=== PATIENT | female | born 1990 | race Caucasian/White ===

== ENCOUNTER → 2021-06-20 10:00 | Outpatient (CLI) | payer OTHER, SELFPAY ==
[2021-06-20 11:28] LABS: hCG Titer Quant., Serum 9250 mIU/mL (1-3)
== END ==
PROVIDERS: Obstetrics & Gynecology; Referring Provider Obstetrics & Gynecology; Visit Provider Obstetrics & Gynecology
DX: Z34.90 Encounter for supervision of normal pregnancy, unspecified, unspecified trimester (principal)
CPT/HCPCS: 36415; 84702; 86850; 86900; 86901

== ENCOUNTER → 2022-07-12 | Outpatient (CLI) | payer OTHER, SELFPAY ==
[2022-07-13 21:07] LABS: Chlamydia By Nucleic Acid AMP Negative (Negative)
[2022-07-14 13:08] LABS: Gonococcus By Nucleic Acid AMP Negative (Negative)
[2022-07-15 12:29] LABS: HPV APTIMA, High Risk Negative (Negative)
== END | disposition home or self-care (01) ==
LOC: LABSPEC 12:52
PROVIDERS: Referring Provider Obstetrics & Gynecology; Visit Provider Obstetrics & Gynecology
DX: Z34.90 Encounter for supervision of normal pregnancy, unspecified, unspecified trimester (principal)
CPT/HCPCS: 87491; 87591; 87624; 88175; G0145

== ENCOUNTER → 2022-08-11 | Outpatient (CLI) | payer OTHER, SELFPAY ==
[2022-08-11 15:55] LABS: Absolute Lymphocyte Count 1.76 X10^3/uL (0.83-4.51); Absolute Neutrophil Count 6.3 X10^3/uL (2.0-7.7); Basophil# 0.01 X10^3/uL; Basophil% 0.1 % (0-1); Eosinophil# 0.07 X10^3/uL; Eosinophils% 0.8 % (0-5); Hematocrit 37.6 % (37-47); Hemoglobin 12.4 g/dL (12.0-15.0); Lymphocyte # 1.76 X10^3/ul (0.83-4.51); Lymphocyte % 20.4 % (19-41); Mean Corpuscular Hgb 29.8 pg (27.0-32.0); Mean Corpuscular Volume 90.4 fL (81-99); Mean Platelet Vol. 10.3 fl (6.2-12.0); Monocyte# 0.47 X10^3/uL; Monocyte% 5.5 % (0-10); NRBC Flagged by Analyzer 0 % (0-5); Neutrophil # 6.29 X10^3/uL (2.7-7.7); Platelet Count 231 K/mm3 (150-450); RBC Distribution Width CV 12.7 % (11.6-14.6); RBC Distribution Width SD 42.1 fl (35.1-43.9); Red Blood Count 4.16 M/mm3 (4.2-5.4); White Blood Count 8.6 K/mm3 (4.4-11.0)
[2022-08-11 16:17] LABS: Glucose Challenge Gest 1H 50g 140 mg/dL (70-140)
[2022-08-11 16:50] LABS: HIV - WCH Non-Reactive (Nonreactive); Hepatitis B Surface Antigen Non-Reactive (Nonreactive); Hepatitis C Antibody Non-Reactive (Nonreactive); Rubella IgG Reactive (Nonreactive); Syphilis Antibodies Non-reactive
== END | disposition home or self-care (01) ==
LOC: LAB 14:10
PROVIDERS: Visit Provider Obstetrics & Gynecology
DX: O99.210 Obesity complicating pregnancy, unspecified trimester (principal)
CPT/HCPCS: 36415; 82950; 85025; 86703; 86762; 86780; 86803; 86850; 86900; 86901; 87340

== ENCOUNTER → 2022-08-16 | Outpatient (CLI) | payer OTHER, SELFPAY ==
[2022-08-16 08:53] LABS: Glucose GTT-Gestation. Fasting 96 mg/dL (<105)
[2022-08-16 09:26] LABS: Glucose GTT-Gestational 1 Hr 170 mg/dL (<190)
[2022-08-16 11:25] LABS: Glucose GTT-Gestational 2 Hr 141 mg/dL (<165)
[2022-08-16 11:48] LABS: Glucose GTT-Gestational 3 Hr 72 L (<145)
== END | disposition home or self-care (01) ==
LOC: LAB 06:47
PROVIDERS: Referring Provider Obstetrics & Gynecology; Visit Provider Obstetrics & Gynecology
DX: Z13.1 Encounter for screening for diabetes mellitus (principal)
CPT/HCPCS: 36415; 82951; 82952

== ENCOUNTER → 2022-10-06 | Outpatient (CLI) | payer OTHER, SELFPAY | END | disposition home or self-care (01) | LOC: LABSPEC 16:52 | PROVIDERS: Referring Provider Obstetrics & Gynecology; Visit Provider Obstetrics & Gynecology | DX: Z34.90 Encounter for supervision of normal pregnancy, unspecified, unspecified trimester (principal) | CPT/HCPCS: 87086; 87088 ==

== ENCOUNTER → 2022-11-24 | Outpatient (CLI) | payer OTHER, SELFPAY ==
[2022-11-24 09:58] LABS: Absolute Lymphocyte Count 1.31 X10^3/uL (0.83-4.51); Absolute Neutrophil Count 6.5 X10^3/uL (2.0-7.7); Basophil# 0.03 X10^3/uL; Basophil% 0.4 % (0-1); Eosinophil# 0.05 X10^3/uL; Eosinophils% 0.6 % (0-5); Hematocrit 36.8 % (37-47); Hemoglobin 12.2 g/dL (12.0-15.0); Lymphocyte # 1.31 X10^3/ul (0.83-4.51); Lymphocyte % 15.5 % (19-41); Mean Corp Hgb Conc 33.2 g/dL (32-36); Mean Corpuscular Hgb 29.9 pg (27.0-32.0); Mean Corpuscular Volume 90.2 fL (81-99); Mean Platelet Vol. 10.3 fl (6.2-12.0); Monocyte# 0.47 X10^3/uL; Monocyte% 5.6 % (0-10); NRBC Flagged by Analyzer 0 % (0-5); Neutrophil # 6.53 X10^3/uL (2.7-7.7); Neutrophil % 77.4 % (47-70); Platelet Count 199 K/mm3 (150-450); RBC Distribution Width CV 13.2 % (11.6-14.6); RBC Distribution Width SD 43.2 fl (35.1-43.9); Red Blood Count 4.08 M/mm3 (4.2-5.4); White Blood Count 8.4 K/mm3 (4.4-11.0)
[2022-11-24 10:20] LABS: Glucose Challenge Gest 1H 50g 182 mg/dL (70-140)
[2022-11-24 10:57] LABS: HIV - WCH Non-Reactive (Nonreactive); Syphilis Antibodies Non-reactive
== END | disposition home or self-care (01) ==
LOC: LAB 09:21
PROVIDERS: Referring Provider Obstetrics & Gynecology; Visit Provider Obstetrics & Gynecology
DX: O09.90 Supervision of high risk pregnancy, unspecified, unspecified trimester (principal); Z3A.00 Weeks of gestation of pregnancy not specified
CPT/HCPCS: 36415; 82950; 85025; 86703; 86780

== ENCOUNTER 2022-12-18 11:00 | Outpatient (RCR) | payer OTHER, SELFPAY | END 2022-12-22 23:59 | LOC: DC 11:00 | PROVIDERS: Referring Provider Obstetrics & Gynecology; Visit Provider Obstetrics & Gynecology | DX: O24.419 Gestational diabetes mellitus in pregnancy, unspecified control (principal); Z3A.00 Weeks of gestation of pregnancy not specified; Z71.3 Dietary counseling and surveillance | CPT/HCPCS: 97802; 97803 ==

== ENCOUNTER → 2023-01-09 | Outpatient (CLI) | payer OTHER, SELFPAY | END | disposition home or self-care (01) | PROVIDERS: Visit Provider Nurse Practitioner Women's Health | DX: R30.0 Dysuria (principal) | CPT/HCPCS: 87086; 87088 ==

== ENCOUNTER → 2024-02-11 | Outpatient (CLI) | payer BC, SELFPAY ==
[2024-02-11 12:27] LABS: hCG Titer Quant., Serum 33850 mIU/mL (1-3)
[2024-02-14 07:09] LABS: Chlamydia By Nucleic Acid AMP Negative (Negative); Gonococcus By Nucleic Acid AMP Negative (Negative)
== END | disposition home or self-care (01) ==
PROVIDERS: Referring Provider Obstetrics & Gynecology; Visit Provider Obstetrics & Gynecology
DX: O99.210 Obesity complicating pregnancy, unspecified trimester (principal); E66.01 Morbid (severe) obesity due to excess calories; Z3A.00 Weeks of gestation of pregnancy not specified; O20.0 Threatened abortion
CPT/HCPCS: 36415; 84702; 87086; 87491; 87591

== ENCOUNTER → 2024-02-13 | Outpatient (CLI) | payer BC, SELFPAY ==
[2024-02-13 13:33] LABS: hCG Titer Quant., Serum 39101 mIU/mL (1-3)
== END | disposition home or self-care (01) ==
LOC: LAB 12:07
PROVIDERS: Referring Provider Obstetrics & Gynecology; Visit Provider Obstetrics & Gynecology
DX: O20.0 Threatened abortion (principal); Z3A.00 Weeks of gestation of pregnancy not specified
CPT/HCPCS: 36415; 84702

== ENCOUNTER 2024-03-17 09:53 | Outpatient (CLI) | payer BC, SELFPAY ==
[2024-03-17 10:40] LABS: Absolute Lymphocyte Count 1.43 X10^3/uL (0.83-4.51); Absolute Neutrophil Count 4.7 X10^3/uL (2.0-7.7); Basophil# 0.02 X10^3/uL; Basophil% 0.3 % (0-1); Eosinophil# 0.08 X10^3/uL; Eosinophils% 1.2 % (0-5); Hematocrit 38.3 % (37-47); Hemoglobin 12.5 g/dL (12.0-15.0); Lymphocyte # 1.43 X10^3/ul (0.83-4.51); Lymphocyte % 21.8 % (19-41); Mean Corp Hgb Conc 32.6 g/dL (32-36); Mean Corpuscular Hgb 29.3 pg (27.0-32.0); Mean Corpuscular Volume 89.9 fL (81-99); Mean Platelet Vol. 10.2 fl (6.2-12.0); Monocyte# 0.35 X10^3/uL; Monocyte% 5.3 % (0-10); NRBC Flagged by Analyzer 0 % (0-5); Neutrophil # 4.66 X10^3/uL (2.7-7.7); Neutrophil % 70.9 % (47-70); Platelet Count 220 K/mm3 (150-450); RBC Distribution Width CV 12.5 % (11.6-14.6); RBC Distribution Width SD 41.2 fl (35.1-43.9); Red Blood Count 4.26 M/mm3 (4.2-5.4); White Blood Count 6.6 K/mm3 (4.4-11.0)
[2024-03-17 11:14] LABS: Hemoglobin A1c 5.3 % (3.8-5.6)
[2024-03-17 11:46] LABS: HIV - WCH Non-Reactive (Nonreactive); Hepatitis B Surface Antigen Non-Reactive (Nonreactive); Hepatitis C Antibody Non-Reactive (Nonreactive); Rubella IgG Reactive (Nonreactive); Syphilis Antibodies Non-reactive
== END 2024-03-17 23:59 | disposition home or self-care (01) ==
LOC: LAB 09:54
PROVIDERS: Referring Provider Nurse Practitioner Women's Health; Visit Provider Nurse Practitioner Women's Health
DX: O09.91 Supervision of high risk pregnancy, unspecified, first trimester (principal); Z3A.11 11 weeks gestation of pregnancy
CPT/HCPCS: 36415; 83036; 85025; 86703; 86762; 86780; 86803; 86850; 86900; 86901; 87086; 87088; 87340

== ENCOUNTER → 2024-04-07 | Outpatient (CLI) | payer BC, SELFPAY | END | disposition home or self-care (01) | LOC: WOBLAB 13:43 | PROVIDERS: Referring Provider Obstetrics & Gynecology; Visit Provider Obstetrics & Gynecology | DX: Z34.82 Encounter for supervision of other normal pregnancy, second trimester (principal) | CPT/HCPCS: 36415 ==

== ENCOUNTER → 2024-05-09 | Outpatient (CLI) | payer BC, SELFPAY ==
--- NOTE | 2024-05-09 15:02 | US_ITS ---
INDICATION: anatomy COMPARISON: None. FINDINGS: 98 grayscale ultrasound images obtained both transabdominally and transvaginally demonstrate single live intrauterine measuring at 20 weeks + 3 days average ultrasound age. This gives estimated date of delivery 09/23/2024. Estimated weight 341 g, 59th percentile. heart rate 145 bpm. Adequate amniotic fluid for gestational age. Posterior placenta is unremarkable for gestational age. Uterine myometrium is unremarkable. Uterine cervix is long and closed measuring at least 3.4 cm in length. Bilateral ovaries are not visualized. No significant free fluid. Normal appearance to the cerebral ventricles, cavum, thalami, cerebelli, and cisterna magna. The cervical, thoracic, lumbar, and lumbosacral spines are unremarkable. Four chamber heart visualized. Normal stomach bubble and intact diaphragm. Kidneys, bladder, 3 vessel cord and cord insertion are unremarkable. IMPRESSION: Single live intrauterine measuring at 20 weeks + 3 days average ultrasound age. This gives estimated date of delivery 09/23/2024. Estimated weight 341 g, 59th percentile. Electronically Signed: Calvin Walker MD at 6:51 EST , INDICATION: anatomy COMPARISON: None. FINDINGS: 98 grayscale ultrasound images obtained both transabdominally and transvaginally demonstrate single live intrauterine measuring at 20 weeks + 3 days average ultrasound age. This gives estimated date of delivery 09/23/2024. Estimated weight 341 g, 59th percentile. heart rate 145 bpm. Adequate amniotic fluid for gestational age. Posterior placenta is unremarkable for gestational age. Uterine myometrium is unremarkable. Uterine cervix is long and closed measuring at least 3.4 cm in length. Bilateral ovaries are not visualized. No significant free fluid. Normal appearance to the cerebral ventricles, cavum, thalami, cerebelli, and cisterna magna. The cervical, thoracic, lumbar, and lumbosacral spines are unremarkable. Four chamber heart visualized. Normal stomach bubble and intact diaphragm. Kidneys, bladder, 3 vessel cord and cord insertion are unremarkable. US/OB Anatomy w/ Transvaginal
== END | disposition home or self-care (01) ==
LOC: US 15:01
PROVIDERS: Referring Provider Nurse Practitioner Women's Health; Visit Provider Nurse Practitioner Women's Health
DX: Z34.90 Encounter for supervision of normal pregnancy, unspecified, unspecified trimester (principal); Z3A.00 Weeks of gestation of pregnancy not specified
CPT/HCPCS: 76805; 76817

== ENCOUNTER → 2024-06-30 | Outpatient (CLI) | payer BC, SELFPAY ==
[2024-06-30 10:50] LABS: Absolute Lymphocyte Count 1.48 X10^3/uL (0.83-4.51); Absolute Neutrophil Count 5.8 X10^3/uL (2.0-7.7); Basophil# 0.03 X10^3/uL; Basophil% 0.4 % (0-1); Eosinophil# 0.08 X10^3/uL; Hematocrit 36.4 % (37-47); Hemoglobin 11.7 g/dL (12.0-15.0); Lymphocyte # 1.48 X10^3/ul (0.83-4.51); Lymphocyte % 18.9 % (19-41); Mean Corp Hgb Conc 32.1 g/dL (32-36); Mean Corpuscular Hgb 29.3 pg (27.0-32.0); Mean Corpuscular Volume 91.2 fL (81-99); Mean Platelet Vol. 10.6 fl (6.2-12.0); Monocyte# 0.42 X10^3/uL; Monocyte% 5.4 % (0-10); NRBC Flagged by Analyzer 0 % (0-5); Neutrophil # 5.75 X10^3/uL (2.7-7.7); Neutrophil % 73.3 % (47-70); Platelet Count 202 K/mm3 (150-450); RBC Distribution Width CV 13.2 % (11.6-14.6); RBC Distribution Width SD 43.7 fl (35.1-43.9); Red Blood Count 3.99 M/mm3 (4.2-5.4); White Blood Count 7.8 K/mm3 (4.4-11.0)
[2024-06-30 11:36] LABS: Glucose Challenge Gest 1H 50g 153 mg/dL (70-140)
[2024-06-30 11:59] LABS: HIV - WCH Non-Reactive (Nonreactive); Syphilis Antibodies Non-reactive
== END | disposition home or self-care (01) ==
LOC: BWCLAB 09:41
PROVIDERS: Referring Provider Obstetrics & Gynecology; Visit Provider Obstetrics & Gynecology
DX: O09.91 Supervision of high risk pregnancy, unspecified, first trimester (principal); Z13.1 Encounter for screening for diabetes mellitus; Z3A.00 Weeks of gestation of pregnancy not specified
CPT/HCPCS: 36415; 82950; 85025; 86703; 86780

== ENCOUNTER → 2024-07-03 | Outpatient (CLI) | payer BC, SELFPAY ==
[2024-07-03 07:30] LABS: Bedside Glucose 94 mg/dL (74-106)
[2024-07-03 07:53] LABS: Glucose GTT-Gestation. Fasting 100 mg/dL (<105)
[2024-07-03 08:42] LABS: Glucose GTT-Gestational 1 Hr 211 mg/dL (<190)
[2024-07-03 09:34] LABS: Glucose GTT-Gestational 2 Hr 130 mg/dL (<165)
[2024-07-03 10:44] LABS: Glucose GTT-Gestational 3 Hr 120 L (<145)
== END | disposition home or self-care (01) ==
PROVIDERS: Referring Provider Obstetrics & Gynecology; Visit Provider Obstetrics & Gynecology
DX: O99.810 Abnormal glucose complicating pregnancy (principal); Z3A.00 Weeks of gestation of pregnancy not specified
CPT/HCPCS: 36415; 82951; 82952; 82962

== ENCOUNTER → 2024-08-04 | Outpatient (CLI) | payer BC, SELFPAY ==
--- NOTE | 2024-08-04 08:51 | US_ITS ---
PROCEDURE: OBSTETRICAL ULTRASOUND - BIOPHYSICAL PROFILE REASON FOR EXAM: well-being. TECHNIQUE: Ultrasound imaging of the fetus was performed.. COMPARISON: None. FINDINGS: There is a single intrauterine fetus. The fetus is in a breech presentation. There is demonstrated cardiac activity with a heart rate of 137 bpm. There is a normal amniotic fluid volume. The largest amniotic fluid pocket measures 8.4 cm. The amniotic fluid index (ABRAN) is 25.6 cm. The placenta is posterior and not low- lying. There are Grade 1 placental changes. Age by LMP: 32 weeks, 3 days. THUAN by LMP: September 26, 2024. BIOPHYSICAL PROFILE: Breathing Movements (FBM): 2 Gross Body Movements (GBM): 2 Tone (FT): 2 Amniotic Fluid Volume (AFV): 2 TOTAL SCORE: 8 / 8 US/Biophysical Prof W/O Non Stres IMPRESSION: Normal biophysical profile of 8/8. Reading Location: [place] [id number]
== END | disposition home or self-care (01) ==
PROVIDERS: Referring Provider Advanced Practice Midwife; Visit Provider Advanced Practice Midwife
DX: O24.419 Gestational diabetes mellitus in pregnancy, unspecified control (principal); E66.01 Morbid (severe) obesity due to excess calories; Z3A.00 Weeks of gestation of pregnancy not specified; O99.210 Obesity complicating pregnancy, unspecified trimester
CPT/HCPCS: 76819

== ENCOUNTER → 2024-08-11 | Outpatient (CLI) | payer BC, SELFPAY ==
--- NOTE | 2024-08-11 08:04 | US_ITS ---
PROCEDURE: OBSTETRICAL ULTRASOUND - BIOPHYSICAL PROFILE REASON FOR EXAM: well-being. TECHNIQUE: Imaging of the fetus was obtained. COMPARISON: Comparison is made with prior study dated August 04, 2024. FINDINGS: There is a single intrauterine fetus. The fetus is in a breech presentation. There is demonstrated cardiac activity with a heart rate of 143 bpm. There is a normal amniotic fluid volume. The largest amniotic fluid pocket measures 8.8 cm 5 cm. The amniotic fluid index (ABRAN) is 28.7 cm. The placenta is posterior and not low- lying there are Grade 1 placental changes. Age by LMP: 33 weeks, 3 days. THUAN by LMP: September 26, 2024. BIOPHYSICAL PROFILE: Breathing Movements (FBM): 2 Gross Body Movements (GBM): 2 Tone (FT): 2 Amniotic Fluid Volume (AFV): 2 TOTAL SCORE: 8 / 8 US/Biophysical Prof W/O Non Stres IMPRESSION: Normal biophysical profile of 8/8. Reading Location: [facility]
== END | disposition home or self-care (01) ==
LOC: OPUS 08:02
PROVIDERS: Referring Provider Advanced Practice Midwife; Visit Provider Advanced Practice Midwife
DX: O24.419 Gestational diabetes mellitus in pregnancy, unspecified control (principal); E66.01 Morbid (severe) obesity due to excess calories; O99.210 Obesity complicating pregnancy, unspecified trimester; Z3A.00 Weeks of gestation of pregnancy not specified
CPT/HCPCS: 76819

== ENCOUNTER 2024-08-17 08:17 | Inpatient (IN) | payer BC, SELFPAY ==
[2024-08-17] VITALS (18 sets, daily range): BP systolic 70–137; BP diastolic 34–95; PULSE 59–97; RESP 14–17; TEMP 36.3–37.4; O2SAT 97–100; BMI 45.7
[2024-08-17 08:01] LABS: ROM Internal Control Test YES-OK TO RESULT pt. (Internal QC)
[2024-08-17 08:02] LABS: ROM Patient Test POSITIVE (Negative); Record Kit Lot#, ROM+ K2871
[2024-08-17] MEDS: Acetaminophen 500 MG Tablet 1000 MG PO ×3 (09:01→21:00)
[2024-08-17] MEDS: Lactated Ringers 1,000 ML 999 ML IV (09:15)
[2024-08-17 09:30] LABS: Absolute Lymphocyte Count 1.06 X10^3/uL (0.83-4.51); Absolute Neutrophil Count 4.3 X10^3/uL (2.0-7.7); Basophil# 0.02 X10^3/uL; Basophil% 0.3 % (0-1); Eosinophil# 0.08 X10^3/uL; Eosinophils% 1.3 % (0-5); Hemoglobin 12.1 g/dL (12.0-15.0); Lymphocyte # 1.06 X10^3/ul (0.83-4.51); Lymphocyte % 17.9 % (19-41); Mean Corp Hgb Conc 32.7 g/dL (32-36); Mean Corpuscular Hgb 29.2 pg (27.0-32.0); Mean Corpuscular Volume 89.2 fL (81-99); Mean Platelet Vol. 10.3 fl (6.2-12.0); Monocyte# 0.43 X10^3/uL; Monocyte% 7.3 % (0-10); NRBC Flagged by Analyzer 0 % (0-5); Neutrophil # 4.31 X10^3/uL (2.7-7.7); Neutrophil % 72.7 % (47-70); Platelet Count 168 K/mm3 (150-450); RBC Distribution Width CV 13.6 % (11.6-14.6); RBC Distribution Width SD 44.3 fl (35.1-43.9); Red Blood Count 4.15 M/mm3 (4.2-5.4); White Blood Count 5.9 K/mm3 (4.4-11.0)
[2024-08-17 09:37] LABS: Bedside Glucose 94 mg/dL (74-106)
[2024-08-17 10:06] LABS: Syphilis Antibodies Non-reactive
[2024-08-17] MEDS: Lactated Ringers 1,000 ML 150 ML IV (10:10)
[2024-08-17] MEDS: Azithromycin 500 MG in 0.9% Normal Saline (250mL Bag) 250 ML 255 MG IV (10:17)
--- NOTE | 2024-08-17 10:32 | HP.PCM.OB_ITS ---
[facility] - General General Date of Admission: 08/17/24 Date of Service: 08/17/24 Chief Complaint: 34+ Week Intrauterine with Premature Rupture Membranes [facility] Narrative EFREN MEDLEY, is a 34 F G2, P1 at 34 weeks and 2 days who presents to labor and delivery with spontaneous rupture membranes. care has been remarkable for a prior section at approximately 33 weeks with breech presentation. Patient is known to have a bicornate uterus. Patient also has gestational diabetes well-controlled with metformin. Her first daughter had a VSD and duodenal atresia which were repaired surgically at 7 days old but maternal- medicine has done ultrasounds in this baby and found no indication of these defects. The baby has 1 kidney which is dilated to approximately 9 mm and is to be followed after delivery. Maternal Data Information THUAN Calculator Estimated Delivery Date Method Current WG Current Estimate 09/26/24 LMP (Certain) 34w 2d Other Estimates 09/29/24 Ultrasound #1 33w 6d Final THUAN: 09/26/24 Gestational age: 34 weeks 2 days PFSH [facility] Medical History (Updated 08/17/24 @ 10:[address] Oleksandr Rick MD) Polyhydramnios History of pre-term labor Gestational diabetes Congenital duodenal atresia History of gestational diabetes mellitus (GDM) in prior , currently Complete Incomplete COVID-19 vaccine series completed Home Medications ?Medication ?Instructions ?Recorded ?Last Taken ?Type multivitamin no.47-iron fum 27 1 cap PO DAILY pregnanc y 06/01/21 08/16/24 History mg-folate no.1 1 mg-dha 300 mg capsule (PNV-DHA) blood-glucose meter #1 ea 07/04/24 Unknown Rx lancets #200 ea 07/04/24 Unknown Rx blood sugar diagnostic (Blood #150 ea 07/22/24 Unknown Rx Glucose Test strips) metformin 1,000 mg tablet 1,000 mg PO QDAY #30 tabs 08/16/24 Rx Allergy/AdvReac Type Severity Reaction Status Date / Time No Known Allergies Allergy Verified 08/17/24 07:30 Family History Mother Hypertension Stillborn, normal Father Hypertension Surgical History (Updated 08/14/24 @ 09:48 by Marizol Schulte) History of tonsillectomy and adenoidectomy H/O wisdom tooth extraction Social History adopted: No household members: spouse housing: house number of children: 1 current occupational status: unemployed current occupation: [employer] current occupational exposures/hazards: No pets and animals: Yes pets and animals: dog(s) history of recent travel: No sexually active: Yes Smoking Status: Former smoker how long ago did patient quit smokin-15 years ago second hand exposure: No alcohol intake: current alcohol intake frequency: holidays/special occasions only details: not while substance use type: does not use well-balanced diet: daily or most days caffeine: Yes Type: coffee Number of servings: 1 eating out: 1-3 times/week during the past year weight has: increased > 10 lbs what type of physical activity do you participate in: walking frequency: 3-4 times per week duration: 15-30 minutes/day joseph/mormonism: Roman Catholic seatbelt use: always do you feel safe at home: Yes 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 Date Name GA/Weeks Outcome Route Bth Weight Gen Labor Lgth Anesthesia Del Locatn Provider FOB 06/27/21 miscarriage 7 weeks 12/26/22 Luke 33 live - 3lbs 7.5oz [facility] Delivery Date: 06/27/21 Last Updated by: Queta Lenz methotrexate Delivery Date: 12/26/22 Last Updated by: Queta Lenz duodenal atresia, VSD & ASD Visit Details Expected Delivery Route/Plan patient counseled regarding risks/benefits of trial of labor versus repeat . ACOG/uptodate education given to patient. [] % likelihood of success per calculator TOLAC consent form signed: [] Labor Preferences- CB/BF classes: yes labor support person: Devin labor intervention preferences: [] pain management options preferred: epidural cut cord/dad catch: cord : yes PP control planned: discussed discussed possible routes of delivery and associated risks: [] special requests: [] Plans Covid status: [] Flu vaccine: [] Tdap vaccine: [] Rhogam: NA LARC form signed: yes Problem list reviewed and updated with the most current plan of care details and appropriate orders placed. Relevant counseling for the gestational age provided. Continue routine care and follow up unless otherwise noted in visit notes/problem list details OB Flowsheet Initial Weight: Not Recorded Date -?-?-?-?-?-?-?-?-?-?-?-?- EGA Weight BP Urine Prot -?-?-?-?-?-?-?-?-?-?-?-?- Glucose FHR FuHt Pres Dilation -?-?-?-?-?-?-?-?-?-?-?-?- Effaced St Visit Note 02/11/24 -?-?-?-?-?-?-?-?-?-?-?-?- 7w 3d 235 lb 144/90 -?-?-?-?-?-?-?-?-?-?-?-?- -?-?-?-?-?-?-?-?-?-?-?-?- JV- pt believes she is 7 weeks 1 day since her last menses. Her baby is just a year old now and she isn't sure about her ovulation cycle yet. There is a tiny gestational sac present that looks collapsed. ordering serial quants. 02/13/24 -?-?-?-?-?-?-?-?-?-?-?-?- 7w 5d 237 lb 8 oz Negative -?-?-?-?-?-?-?-?-?-?-?-?- Negative 166 -?-?-?-?-?-?-?-?-?-?-?-?- JV- now seeing I UP measuring 7 weeks 2 days. quant increased. difficulty likely due to retroverted uterus. RTO in 4 weeks. plan NIPT order at that time. 03/10/24 -?-?-?-?-?-?-?-?-?-?-?-?- 11w 3d 234 lb 118/82 Negative -?-?-?-?-?-?-?-?-?-?-?-?- Negative 157 -?-?-?-?-?-?-?-?-?-?-?-?- -No VB. Live I UP on US. PN labs and NIPT today 04/07/24 -?-?-?-?-?-?-?-?-?-?-?-?- 15w 3d 237 lb 129/81 Negative -?-?-?-?-?-?-?-?-?-?-?-?- Negative 147 -?-?-?-?-?-?-?-?-?-?-?-?- JV- anatomy us o rdered and rpt nipt done due to insufficient cells. JV- anatomy us ordered and r pt nipt done due to insufficient cells. h/o cs at 33 weeks for breech and completely dilated. wants to try . 05/05/24 -?-?-?-?-?-?-?-?-?-?-?-?- 19w 3d 242 lb 132/84 Negative -?-?-?-?-?-?-?-?-?-?-?-?- Negative 145 -?-?-?-?-?-?-?-?-?-?-?-?- KW- no vb/clarice cage. flutters. US on sunday. 06/02/24 -?-?-?-?-?-?-?-?-?-?-?-?- 23w 3d 247 lb 2 oz 134/82 Nega tive -?-?-?-?-?-?-?-?-?-?-?-?- Negative 140 -?-?-?-?-?-?-?-?-?-?-?-?- JV- anatomy scan reviewed. discussed vs vag delivery. plan 28 weeks lab next visit. 06/30/24 -?-?-?-?-?-?-?-?-?-?-?-?- 27w 3d 245 lb 6 oz 130/84 Nega tive -?-?-?-?-?-?-?-?-?-?-?-?- Negative 148 28 -?-?-?-?-?-?-?-?-?-?-?-?- MH-No VB, LOF. G ood FM. Will ref [facility] for MFM consult/ echo(where dtr had surg) 07/14/24 -?-?-?-?-?-?-?-?-?-?-?-?- 29w 3d 247 lb 6 oz 124/82 Nega tive -?-?-?-?-?-?-?-?-?-?-?-?- Negative 145 31 -?-?-?-?-?-?-?-?-?-?-?-?- KW- no vb/lof/ct x. good fm. BS reviewed and 12/01 fastings are elevated. Discussed with JV and will start metformin. sees MFM on . nutrition will call back to schedule 07/28/24 -?-?-?-?-?-?-?-?-?-?-?-?- 31w 3d 244 lb 6 oz 126/87 Nega tive -?-?-?-?-?-?-?-?-?-?-?-?- Negative 145 -?-?-?-?-?-?-?-?-?-?-?-?- JV- JV- fasting glucose levels s till elevated. She is on 500 mg metformin. has appts for bpp's starting next week. 08/11/24 -?-?-?-?-?-?-?-?-?-?-?-?- 33w 3d 243 lb 6 oz 123/83 Nega tive -?-?-?-?-?-?-?-?-?-?-?-?- Negative 145 33 -?-?-?-?-?-?-?-?-?-?-?-?- SM- no vb lof go od fm n oregular ctx increased metformin and now has better contorl. discussed polyhydramnios patient requesting weekly bpps once weekly only due to cost, discussed trying weekly nsts and weekly bpps if able but may need twice wekely bpps if unable to complet nsts NST FHR Rate Baby A NST Reactive:: Yes ROS Constitutional Constitutional: Reports systems reviewed and no addt'l complaints, except as documented Vital Signs Vital Signs Vital Signs: 08/17/24 07:20 08/17/24 07:20 08/17/24 07:20 Temperature 98.1 F Temperature Source Temporal Pulse Rate Respiratory Rate 16 Blood Pressure Blood Pressure Mean BP Systolic BP Diastolic Blood Pressure Source Blood Pressure Position Blood Pressure Location Pulse Ox Oxygen Delivery Method 08/17/24 07:21 08/17/24 07:21 08/17/24 07:58 Temperature Temperature Source Pulse Rate 97 88 Respiratory Rate Blood Pressure 137/79 H Blood Pressure Mean BP Systolic 137 BP Diastolic 79 Blood Pressure Source Blood Pressure Position Blood Pressure Location Pulse Ox Oxygen Delivery Method 08/17/24 07:58 08/17/24 08:51 08/17/24 08:56 Temperature 98.9 F Temperature Source Temporal Pulse Rate 82 Respiratory Rate 16 Blood Pressure 128/76 H 128/76 H Blood Pressure Mean 93 BP Systolic 128 BP Diastolic 76 Blood Pressure Source Monitor Blood Pressure Position Sitting Blood Pressure Location Left Arm Pulse Ox 98 98 Oxygen Delivery Method Room Air 08/17/24 08:56 Temperature Temperature Source Pulse Rate 82 Respiratory Rate Blood Pressure Blood Pressure Mean BP Systolic BP Diastolic Blood Pressure Source Blood Pressure Position Blood Pressure Location Pulse Ox Oxygen Delivery Method Weight Weight: 242 lb 3.2 oz Body Mass Index (BMI) 45.7 Physical Exam Const oriented x3, no apparent distress and well nourished General Appearance: cooperative and comfortable Exam Limitations: no limitations HEENT normocephalic Neck full ROM Resp normal respiratory effort Neuro moves all extremities, no focal motor deficits and no sensory deficits noted Psych mental status grossly normal, affect normal and speech normal Labs Labs Labs: Blood Type A POSITIVE Antibody Screen NEGATIVE Hct 37.0 % (37-47) Hgb 12.1 g/dL (12.0-15.0) Obstetrics Ultrasound Syphilis Total Ab Non-reactive Rubella IgG Antibody Reactive (Nonreactive) Hep Bs Antigen Non-Reactive (Nonreactive) Hepatitis C Antibody Non-Reactive (Nonreactive) Chlamydia DNA (MERA) Negative (Negative) N.gonorrhoeae DNA (MERA) Negative (Negative) HIV 1&2 Antibody Non-Reactive (Nonreactive) Glucose 1 Hr 50 gm 153 mg/dL (70-140) H Gest Glucose Tolerance MG/DL Assessment & Plan (1) Breech presentation: (2) premature rupture of membranes: (3) History of : COMMENT: [facility] 12/26/22 SROM at 33 wk. Luke. RLTCS with DANELLE 09/19 @ 7:15 PLAN: Plan 34+ week intrauterine with premature rupture of membranes and prior section with breech presentation. Plan repeat low transverse cervical section. Discussed risk, benefits, and alternatives of a repeat with the patient and her and they desire that we proceed. All questions were answered. Ancef and azithromycin to be given.
[2024-08-17] MEDS: Sodium Citrate/Citric Acid 30 ML UDC PO (10:49)
[2024-08-17] MEDS: Cefazolin 2 GM in Syringe IV (11:12)
[2024-08-17] MEDS: Oxytocin 15 Units/NS 250ml 15 UNITS/250 ML IV.SOLN 83 UNITS IV (12:15)
--- NOTE | 2024-08-17 12:34 | OP.PCM_ITS ---
Maternal Data Information THUAN Calculator Estimated Delivery Date Method Current WG Current Estimate 09/26/24 LMP (Certain) 34w 2d Other Estimates 09/29/24 Ultrasound #1 33w 6d Operative Report (OB) Cecarean Details Procedure Type: low transverse Date of Procedure: 08/17/24 Procedure Start Time: 11:15 (approximate times; see nursing notes for exact ti me) Procedure Stop Time: 12:15 (approximate times; see nursing notes for exact times) Pre-Operative Diagnosis: Breech and Other ( premature Rupture of membranes; Prior C -section; Bicornate Uterus) Other Pre-Operative diagnosis: Breech Presentation, Premature Rupture Membranes Post-Operative Diagnosis: Same as Pre-operative diagnosis Classification: SELENA Type of Anesthesia: Spinal (with Duramorph) Antibiotic Given: Ancef 2 grams IV x1 and Zithromax 500 mg/5 mL X1 Drain: Mullins to straight drain Estimated Blood Loss: 500 cc Findings Description of surgery: Surgeon: Oleksandr Rick MD, FACOG Applied Computer Science Professor: ZAHIDA uBrris Anesthesia: Juanpablo Moffett CRNA Procedure: Repeat Low Transverse Cervical Caesarean Section Findings: Viable male infant with Apgars of 8/8 in complete breech presentation with clear amniotic fluid and normal three-vessel placenta. Indication: This is a 34-year-old who presents for her second at 34+ weeks gestation. She presented this morning with premature rupture of membranes. She is known to have breech presentation. care has been remarkable for gestational diabetes well-controlled with metformin and she had a prior section at 33 weeks for premature rupture of membranes and breech presentation as well. In that her daughter was noted to have duodenal atresia and a VSD and ASD. Maternal- medicine ultrasounds with this have shown no indications of these conditions. She is also known to have a bicornate uterus. care has otherwise been uneventful. The patient has been counseled regarding the risk and indications of this procedure including the possibility of bleeding infection and injury to surrounding structures such as bowel bladder. All questions were answered. Procedure: Patient was taken to the operating room where after spinal anesthesia was placed, the patient was prepped and draped in usual sterile fashion and a Mullins catheter was placed. The abdomen was entered through the patient's prior Pfannenstiel incision and peritoneum was entered bluntly. After developing a bladder flap on the lower uterine segment a low transverse incision was made on the uterus and breech was easily delivered onto the operative field and nose mouth and oropharynx were bulb suctioned. Subsequently a viable male was born with Apgars of 8/8. The was noted to cry move all extremities vigorously on the operative field. The umbilical cord was doubly clamped and ligated and infant handed to the nursery personnel who were present for the delivery. Placenta was delivered and noted to be 3 vessels and normal. Uterus was exteriorized and remaining placental tissue was removed. The uterus was then closed in 2 layers first with running locked 0 Vicryl suture followed by a second imbricating layer with 0 Vicryl suture. 0 Vicryl suture was then used in a horizontal mattress interrupted fashion to affect final hemostasis of the uterine incision line. Normal fallopian tubes and ovaries were visualized and the uterus was returned to the pelvis although the heart-shaped uterus was noted. Hemostasis was noted and rectus abdominis muscles were reapproximated in the midline with interrupted Number 0 Vicryl suture in a horizontal mattress fashion. Fascia was closed with running Number 1 PDS Strata fix suture. Subcutaneous tissue was irrigated with copious amounts of saline solution and then closed with running 3-0 Vicryl suture. Skin was closed with 4-0 Monocryl s uture in a running subcuticular fashion. Steri strips and a Mepilex dressing were placed across the incision. The patient tolerated the procedure well and was taken to the recovery room in satisfactory condition. Sponge, needle, and instrument counts were all reportedly correct. EBL was 500 cc. Ancef 2 gms IV and azithromycin 500 mg were given prior to the procedure. Spicemen to Pathology: None Complications: None Surgical findings: Viable male infant with Apgars of 8/8 Presentation: Complete Breech Amniotic Membrane Rupture Type: Spontaneous Amniotic Fluid Description: Clear Placental Delivery Description: Spontaneous Placenta Disposition: [facility] Specimen collected: No Cord Vessel Description: 3 Vessels Cord Entanglement: None Cord Gases: ABG and VBG A gender: Male (1 minute): 8 (5 minute): 8 Delayed Cord Clamping: No Parachutist/Combatant Diver Qualified hogshead filler: Yes Cable Coverer: Nikole Ellis Tasks completed by promotions assistant: Closing, Hemostasis: Electrocautery and Retracting Complications Complications: No Admit VTE Documentation VTE Present on Admission: Yes VTE Mechan Device Prophylaxis: SCD's VTE Pharm Prophylaxis Ordered: Yes
[2024-08-17 12:55] LABS: Bedside Glucose 82 mg/dL (74-106)
[2024-08-17] MEDS: Ketorolac 30 MG/ML Syringe IV (17:54)
[2024-08-17] MEDS: 0.9% Saline Lock 10 ML Syringe IV (17:54)
[2024-08-17] MEDS: Enoxaparin 40 MG/0.4 ML Syringe SC (22:08)
[2024-08-18] VITALS: BP 102/64; PULSE 61; RESP 17; TEMP 36.5; O2SAT 98
[2024-08-18] MEDS: Acetaminophen 500 MG Tablet 1000 MG PO ×4 (03:04→21:34)
[2024-08-18 03:09] VITALS: BP 96/65; PULSE 71; RESP 17; TEMP 36.6; O2SAT 99
[2024-08-18] MEDS: 0.9% Saline Lock 10 ML Syringe IV ×2 (06:10)
[2024-08-18] MEDS: Ketorolac 30 MG/ML Syringe IV ×2 (06:10)
[2024-08-18 06:17] LABS: Bedside Glucose 104 mg/dL (74-106)
[2024-08-18 06:18] LABS: Hematocrit 31.8 % (37-47); Hemoglobin 10.4 g/dL (12.0-15.0); Mean Corp Hgb Conc 32.7 g/dL (32-36); Mean Corpuscular Hgb 30.1 pg (27.0-32.0); Mean Corpuscular Volume 92.2 fL (81-99); Mean Platelet Vol. 10.9 fl (6.2-12.0); Platelet Count 111 K/mm3 (150-450); RBC Distribution Width CV 13.9 % (11.6-14.6); RBC Distribution Width SD 46.6 fl (35.1-43.9); Red Blood Count 3.45 M/mm3 (4.2-5.4); White Blood Count 5.4 K/mm3 (4.4-11.0)
[2024-08-18 08:45] VITALS: BP 116/73; PULSE 100; RESP 16; TEMP 36.4; O2SAT 100
[2024-08-18] MEDS: Senna/Docusate Sodium 1 Tablet PO ×2 (08:54→21:34)
[2024-08-18] MEDS: Enoxaparin 40 MG/0.4 ML Syringe SC ×2 (08:54→21:35)
--- NOTE | 2024-08-18 09:41 | PCM.PN.OB ---
Subjective Subjective Patient without complaints. Pain well-controlled. Positive flatus. Tolerating diet well. Voiding on own. Minimal vaginal bleeding reported. Breast-feeding progressing. Objective Data Objective Data Afebrile, vital signs stable. Hemoglobin okay. Urine output okay. Vital Signs: Vital Signs Temp Pulse Resp BP Pulse Ox O2 Del Method 97.6 F L 100 16 116/73 100 Room Air 08/18/24 08:45 08/18/24 08:45 08/18/24 08:45 08/18/24 08:45 08/18/24 08:45 08/18/24 08:45 Oxygen Delivery Method Room Air Weight: 242 lb 3.2 oz Body Mass Index (BMI) 45.7 Intake & Output: Intake and Output for Last 24 Hours 08/16/24 08/17/24 08/18/24 23:59 23:59 23:59 Intake Total 2525 / 2525 Output Total 800 / 800 1850 / 1850 Balance 1725 / 1725 -1850 / -1850 Lab / Micro Data 08/18/24 05:59 Labs: Laboratory Results - last 24 hr 08/17/24 09:15: Syphilis Total Ab Non-reactive, Blood Type A POSITIVE, Antibody Screen NEGATIVE 08/17/24 12:37: POC Glucose 82 08/18/24 05:53: POC Glucose 104 08/18/24 05:59: WBC 5.4, RBC 3.45 L, Hgb 10.4 L, Hct 31.8 L, MCV 92.2, MCH 30.1, MCHC 32.7, RDW Std Deviation 46.6 H, RDW Coeff of Tootie 13.9, Plt Count 111 L, MPV 10.9 Physical Exam Narrative Wound dressing is clean, dry, intact. Assessment & Plan (1) Delivery by section for breech presentation: PLAN: Doing well postoperative day #1 status post repeat for breech presentation and premature rupture membranes. Continuing present care.
[2024-08-18 10:37] VITALS: PULSE 100; RESP 16; O2SAT 98
[2024-08-18] MEDS: Ibuprofen 600 MG Tablet PO ×3 (12:00→23:58)
[2024-08-18] MEDS: oxyCODONE 5 MG Tablet PO ×2 (15:04→21:35)
[2024-08-18 15:14] VITALS: BP 106/70; PULSE 104; RESP 16; TEMP 36.3; O2SAT 100
[2024-08-18 20:39] VITALS: BP 115/68; PULSE 81; RESP 14; TEMP 36.9; O2SAT 98
[2024-08-19 03:07] VITALS: BP 131/72; PULSE 81; RESP 14; TEMP 36.7; O2SAT 98
[2024-08-19] MEDS: oxyCODONE 5 MG Tablet PO ×3 (03:10→17:57)
[2024-08-19] MEDS: Acetaminophen 500 MG Tablet 1000 MG PO ×4 (03:10→21:29)
[2024-08-19] MEDS: Ibuprofen 600 MG Tablet PO ×4 (06:03→23:47)
--- NOTE | 2024-08-19 08:52 | PCM.PN.OB ---
Subjective Subjective Patient doing well without complaints. Tolerating PO. Ambulating and voiding without difficulty. feeding well. Denies chest pain, shortness of breath, calf pain/swelling, fevers, chills, lightheadedness. Objective Data Objective Data Vital Signs: Vital Signs Temp Pulse Resp BP Pulse Ox O2 Del Method 98.1 F 81 14 131/72 H 98 Room Air 08/19/24 03:07 08/19/24 03:07 08/19/24 03:07 08/19/24 03:07 08/19/24 03:07 08/19/24 03:07 Oxygen Delivery Method Room Air Weight: 242 lb 3.2 oz Body Mass Index (BMI) 45.7 Intake & Output: Intake and Output for Last 24 Hours 08/17/24 08/18/24 08/19/24 23:59 23:59 23:59 Intake Total 2525 / 2525 Output Total 800 / 800 2650 / 2650 Balance 1725 / 1725 -2650 / -2650 Lab / Micro Data 08/18/24 05:59 ROS Constitutional Constitutional: Reports systems reviewed and no addt'l complaints, except as documented Cardiovascular Cardiovascular: Reports systems reviewed and no addt'l complaints, except as documented Respiratory/Chest Respiratory/Chest: Reports systems reviewed and no addt'l complaints, except as documented Gastrointestinal Gastrointestinal: Reports systems reviewed and no addt'l complaints, except as documented Physical Exam Const alert, oriented x3 and no apparent distress HEENT Head and Scalp: atraumatic Resp normal respiratory effort GI soft to palpation and non-tender Inspection: incision intact, healing well and drainage (none) Bimanual Exam - Vag & Uterus: uterus non-tender Uterus Palpation: uterus fundus firm (below Umbilicus) Assessment & Plan (1) Delivery by section for breech presentation: PLAN: Plan s/p LTCS PPD # 2 1. routine post care 2. scn admission for baby 3. rh positive 4. rubella immune d cohme tomorrow
[2024-08-19 09:00] VITALS: BP 123/67; PULSE 64; RESP 16; TEMP 36.2
[2024-08-19] MEDS: Senna/Docusate Sodium 1 Tablet PO (09:04)
[2024-08-19] MEDS: Enoxaparin 40 MG/0.4 ML Syringe SC ×2 (09:05→21:29)
[2024-08-19] MEDS: Magnesium Hydroxide 30 ML UDC PO (09:28)
[2024-08-19 14:00] VITALS: BP 107/63; PULSE 74; RESP 16; TEMP 36.4
[2024-08-19 19:45] VITALS: BP 113/66; PULSE 72; RESP 16; TEMP 36.8; O2SAT 98
[2024-08-20 01:50] VITALS: BP 106/65; PULSE 93; RESP 16; TEMP 36.5; O2SAT 100
[2024-08-20] MEDS: oxyCODONE 5 MG Tablet PO (02:48)
[2024-08-20] MEDS: Acetaminophen 500 MG Tablet 1000 MG PO ×2 (03:23→09:30)
[2024-08-20] MEDS: Ibuprofen 600 MG Tablet PO (05:38)
--- NOTE | 2024-08-20 07:59 | PN.OBGYN_ITS ---
Subjective Subjective Patient doing well without complaints. Tolerating PO. Ambulating and voiding without difficulty. Feeding well. Denies chest pain, shortness of breath, calf pain/swelling, fevers, chills, lightheadedness. Baby in SCN but doing well. Objective Data Objective Data Vital Signs: Vital Signs Temp Pulse Resp BP Pulse Ox O2 Del Method 97.7 F L 93 16 106/65 100 Room Air 08/20/24 01:50 08/20/24 01:50 08/20/24 01:50 08/20/24 01:50 08/20/24 01:50 08/20/24 01:50 Oxygen Delivery Method Room Air Weight: 242 lb 3.2 oz Body Mass Index (BMI) 45.7 Intake & Output: Intake and Output for Last 24 Hours 08/18/24 08/19/24 08/20/24 23:59 23:59 23:59 Output Total 2650 / 2650 Balance -2650 / -2650 Lab / Micro Data 08/18/24 05:59 Physical Exam Const alert and oriented x3 HEENT normocephalic Eyes PERRL Neck full ROM Resp normal respiratory effort GI soft to palpation GI Narrative: FF below U. Dressing dry and intact Palpation: tender other (appropriately) Assessment & Plan (1) Delivery by section for breech presentation: COMMENT: 08/17/24 JW breech SROM 34 wk (2) premature rupture of membranes: QUALIFIERS: PROM onset of labor timing: unspecified duration between rupture of membranes and onset of labor Qualified Code(s): O42.919 - premature rupture of membranes, unspecified as to length of time between rupture and onset of labor, unspecified trimester (3) Breech presentation: QUALIFIERS: Fetus number: single or unspecified fetus Qualified Code(s): O32.1XX0 - Maternal care for breech presentation, not applicable or unspecified (4) Gestational diabetes: QUALIFIERS: Gestational diabetes mellitus control: oral hypoglycemic-controlled Trimester: unspecified trimester Qualified Code(s): O 24.415 - Gestational diabetes mellitus in , controlled by oral hypoglycemic drugs COMMENT: nutrition consult, started metformin 1000. BPPs 1x weekly nst weekly per patient request due to cost, growth US with [facility]FM. 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 routine post care 2. breast feeding- support given 3. rh positive 4. rubella immune 5. hotel status today
[2024-08-20 09:32] VITALS: BP 135/87; PULSE 64; RESP 16; TEMP 36.2
== END 2024-08-20 09:44 | disposition home or self-care (01) | DRG 788 ==
LOC: WPOUT 08:24 → WP 08:24
PROVIDERS: Admitting Provider Obstetrics & Gynecology; Visit Provider Advanced Practice Midwife
DX: O42.913 Preterm premature rupture of membranes, unspecified as to length of time between rupture and onset of labor, third trimester (principal); Z3A.34 34 weeks gestation of pregnancy; O24.425 Gestational diabetes mellitus in childbirth, controlled by oral hypoglycemic drugs; O34.211 Maternal care for low transverse scar from previous cesarean delivery; O34.03 Maternal care for unspecified congenital malformation of uterus, third trimester; O32.1XX0 Maternal care for breech presentation, not applicable or unspecified; Z37.0 Single live birth; Q51.3 Bicornate uterus; O99.893 Other specified diseases and conditions complicating puerperium; Z87.891 Personal history of nicotine dependence
CPT/HCPCS: 59025; 59050; 82962; 84112; 85025; 85027; 86780; 86850; 86900; 86901; A4216